=== PATIENT | female | born 1970 | race Caucasian/White ===

== ENCOUNTER 2023-09-22 10:03 | Outpatient (CLI) | payer OTHER, SELFPAY ==
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
== END 2023-09-22 10:04 | disposition home or self-care (01) ==
PROVIDERS: PCP Physician Assistant Medical; Referring Provider Physician Assistant Medical; Visit Provider Physician Assistant Medical
DX: Z00.00 Encounter for general adult medical examination without abnormal findings (principal); R03.0 Elevated blood-pressure reading, without diagnosis of hypertension; Z13.6 Encounter for screening for cardiovascular disorders; Z13.29 Encounter for screening for other suspected endocrine disorder
CPT/HCPCS: 80053; 80061; 84443